=== PATIENT | female | born 1955 | race Caucasian/White ===

== ENCOUNTER 2016-12-17 09:45 | Emergency (ER) | payer BC ==
[~2016-12-17] VITALS: Ht 165.1 cm; Wt 57.4 kg
[~2016-12-17 09:45] MED LIST: BP MED; ZITH250T PO
[2016-12-17 09:56] VITALS: BP 147/78; PULSE 69; RESP 18; TEMP 98.1; O2SAT 97
[2016-12-17] MEDS ORDERED: FORMULA 303 PO (10:29)
[2016-12-17] MEDS ORDERED: [UNRECOGNIZED DRUG - OTHER] PO (10:29)
[2016-12-17] MEDS ORDERED: LISI10TA3 PO (10:29)
[2016-12-17] MEDS ORDERED: AMLO2.5T PO (10:29)
[2016-12-17] MEDS ORDERED: TYLE325T PO (10:44)
[2016-12-17] MEDS ORDERED: NAPR220T9 PO (10:44)
--- NOTE | 2016-12-17 10:44 | PD ---
HPI Chief Complaint: Musculoskeletal Complaint Time Seen by Provider: 10:18 Travel History International Travel<30 days: No Contact w/Intl Traveler<30days: No Traveled to known affect area: No History of Present Illness HPI This is a 61-year-old female who presents to the emergency department with several weeks of back pain. Her back pain started as a spasm in her low back, intermittent, worse with movement, this progressed to involve her left neck, shoulder and radiates down to her elbow. It comes and goes. She doesn't pain when she moves her neck occasionally. She seen a chiropractor for this. She had x-rays of her cervical spine and thoracic sign which were reassuring. She' s been taking 2 natural supplements for her pain. She also tried some Aleve. She was hoping to come to a definitive diagnosis in the emergency department as to what's going on with her. [facility] Past Medical History Diminished Hearing: No Hypertension: Yes ?: Not Menopausal: Yes Past Surgical History Abdominal Surgery: Yes (HERNIA REPAIR) Other Surgery: Yes (LEFT BREAST LUMPECTOMY ) Social History Alcohol Use: No Tobacco Use: No Substance Use: No Allergies-Medications (Allergen,Severity, Reaction): Coded Allergies: No Known Allergies (Verified , 10/26/08) Reported Meds & Prescriptions Reported Meds & Active Scripts Active Reported [Formula 303] PO [Zymain] PO Lisinopril 10 Mg Tab 7.5 Mg PO DAILY Amlodipine (Amlodipine Besylate) 2.5 Mg Tab 2.5 Mg PO DAILY [Bp Med] Review of Systems Except as stated in HPI: all other systems reviewed are Neg Physical Exam Narrative GENERAL:Well appearing, no acute distress SKIN: Warm and dry. HEAD: Atraumatic. Normocephalic. EYES: Pupils equal and round. No injection or drainage. ENT: Moist mucous membranes NECK: Trachea midline. CARDIOVASCULAR: Regular rate and rhythm. No murmur appreciated. 2+ left radial pulse. RESPIRATORY: Clear to auscultation. Breath sounds equal bilaterally. GASTROINTESTINAL: Abdomen soft, non-tender, nondistended. MUSCULOSKELETAL: No obvious deformities. Full painless range of motion of the shoulder and neck. No focal cervical or thoracic spine tenderness. NEUROLOGICAL: Awake and alert. No obvious cranial nerve deficits. Moving all extremities. PSYCHIATRIC: Appropriate mood and affect; insight and judgment normal. Data Data Last Documented VS Vital Signs Date Time Temp Pulse Resp B/P Pulse Ox O2 Delivery O2 Flow Rate FiO2 12/17/16 09:56 98.1 69 18 147/78 97 MDM Medical Decision Making Medical Screen Exam Complete: Yes Emergency Medical Condition: Yes Interpretation(s) Afebrile, no tachycardia, hypertensive Differential Diagnosis Radiculopathy, muscle spasm, rotator cuff sprain Narrative Course This is a 61-year-old female who presents to the emergency department with pain in her left shoulder down to her elbow. I suspect based on her description of symptoms that she has a cervical radiculopathy. She has a normal neurovascular exam. The patient had the expectation that we would perform some imaging to come to a conclusive diagnosis. I advised her that typically MRI is deferred for weeks until conservative treatment and physical therapy have been performed , and that we don't routinely perform MRI in the emergency department. She did seem a little dissatisfied with this answer but will follow-up with her chiropractor to obtain a prescription for physical therapy. She was prescribed naproxen and Tylenol for her pain. Diagnosis Primary Impression: Radiculopathy Qualified Code: M54.12 - Cervical radiculopathy Patient Instructions: General Instructions Additional Instructions: If you develop weakness of your legs, difficulty walking, numbness of your legs or your genital or rectal area, loss of your bowel or bladder, or difficulty urinating return to the emergency department immediately. Follow up with your chiropractor for a prescription for physical therapy. Med/Other Pt SpecificInfo: Prescription(s) given Scripts Acetaminophen (Tylenol)325 Mg [id number] Mg PO Q6H PRN (PAIN SCALE 4 TO 10) #14 TAB Ref 0 Prov:Sol Patel MD 12/17/16 Naproxen Sodium 220 Mg [id number] Mg PO BID PRN (PAIN SCALE 4 TO 10) #20 TAB Prov:Sol Patel MD 12/17/16 Disposition: 01 DISCHARGE HOME Condition: Stable Sol Patel MD Dec 17, 2016 10:44
[2016-12-17] MEDS ORDERED: ACET-703 PO (10:45)
[2017-02-28] MEDS ORDERED: LISI-519 PO ×3 (14:51→15:12)
[2017-02-28] MEDS ORDERED: AMLO2.5T PO ×2 (14:51→15:00)
[2017-02-28] MEDS ORDERED: LISI2.5T3 PO (15:12)
== END 2016-12-17 10:53 | disposition home or self-care (01) ==
LOC: PHED 09:45
DX: M54.12 Radiculopathy, cervical region (principal); M54.5 Low back pain; M62.830 Muscle spasm of back; I10 Essential (primary) hypertension
CPT/HCPCS: 99283